=== PATIENT | male | born 1980 | race Caucasian/White ===

== ENCOUNTER 2018-01-30 10:00 | Outpatient (RCR) | payer MEDICARE, MEDICAID ==
[2013-08-16 21:48] VITALS: BP 135/77
[~2018-01-30 10:00] MED LIST: MULTIPLE VITAMI1 CAP PO; TOPIRAMATE25 MG PO
== END 2018-01-30 11:30 | disposition home or self-care (01) ==
LOC: OT 10:00
DX: R25.2 Cramp and spasm (principal); R26.89 Other abnormalities of gait and mobility; R27.9 Unspecified lack of coordination